=== PATIENT | male | born 1970 | race African-American/Black ===

== ENCOUNTER 2017-07-16 02:32 | Emergency (ER) | payer MEDICAID, OTHER ==
[~2017-07-16] VITALS: Ht 175.3 cm; Wt 79.5 kg
[2017-07-16 02:38] VITALS: BP 143/86
== END 2017-07-16 04:02 | disposition home or self-care (01) ==
LOC: ED 03:30
DX: L03.011 Cellulitis of right finger (principal); M79.641 Pain in right hand
CPT/HCPCS: 10060

== ENCOUNTER 2017-08-30 22:37 | Emergency (ER) | payer SELFPAY ==
[~2017-08-30] VITALS: Ht 172.7 cm; Wt 78.7 kg
[2017-08-30] MEDS ORDERED: SODIUM CHLORIDE FLUSH 10ML SYR IVF ONE (23:00)
[2017-08-30] MEDS ORDERED: ONDANSETRON 2MG/ML, 2ML IVPush ONE (23:00)
[2017-08-30] MEDS ORDERED: SODIUM CHLORIDE 0.9% 1,000ML IVBOLUS ONE (23:00)
[2017-08-30] MEDS ORDERED: MORPHINE SULFATE 4 MG/ML, 1ML ONE (23:18)
[2017-08-30] MEDS ORDERED: ONDANSETRON 2MG/ML, 2ML ONE (23:18)
[2017-08-30] MEDS: MORPHINE SULFATE 4 MG/ML, 1ML IVPush PRN (23:22)
[2017-08-30 23:24] LABS: HEMATOCRIT 46.7 % (39.2-51.8); HEMOGLOBIN 16.2 g/dL (13.7-18.0)
[2017-08-30 23:36] LABS: BLOOD UREA NITROGEN 11 mg/dL (7-18)
[2017-08-31] MEDS ORDERED: MORPHINE SULFATE 4 MG/ML, 1ML ONE (00:35)
[2017-08-31] MEDS: MORPHINE SULFATE 4 MG/ML, 1ML IVPush PRN (00:39)
[2017-08-31 00:57] VITALS: BP 114/81
== END 2017-08-31 01:01 | disposition home or self-care (01) ==
LOC: ED 22:59
DX: R10.32 Left lower quadrant pain (principal); K02.9 Dental caries, unspecified; R11.2 Nausea with vomiting, unspecified
CPT/HCPCS: 36415; 74177; 80048; 81003; 82040; 85025; 96374; 96375; 96376; 99285; J2405; J7030

== ENCOUNTER 2018-07-09 09:15 | Emergency (ER) | payer MEDICAID, OTHER ==
[~2018-07-09] VITALS: Ht 172.7 cm; Wt 78.3 kg
[2018-07-09 09:22] VITALS: BP 127/86
== END 2018-07-09 10:36 | disposition home or self-care (01) ==
LOC: ED 10:15
DX: R60.0 Localized edema (principal); M79.605 Pain in left leg
CPT/HCPCS: 99284

== ENCOUNTER 2019-02-02 16:02 | Emergency (ER) | payer SELFPAY ==
[~2019-02-02] VITALS: Ht 170.2 cm; Wt 74.8 kg
[2019-02-02 16:06] VITALS: BP 158/97
[2019-02-02] MEDS ORDERED: ASPIRIN 81 MG TABLET CHEW PO ONE (16:30)
[2019-02-02 17:07] LABS: BASOPHILS # (AUTO) 0.01 x10^3/uL (0-0.1); BASOPHILS % (AUTO) 0 % (0-1); EOSINOPHILS % (AUTO) 0 % (1-7); LYMPHOCYTES # (AUTO) 0.61 x10^3/uL (1-3.4); LYMPHOCYTES % (AUTO) 13 % (22-44); MD NO; MEAN CORPUSCULAR HEMOGLOBIN 33.1 pg (27.5-34.5); MEAN CORPUSCULAR HGB CONC 34.5 g/dL (33.2-36.2); MEAN CORPUSCULAR VOLUME 96.1 fL (81-97); MEAN PLATELET VOLUME 7.6 fL (7.4-10.4); MONOCYTES # (AUTO) 0.45 x10^3/uL (0.2-0.8); MONOCYTES % (AUTO) 10 % (2-9); NEUTROPHILS # (AUTO) 3.54 x10^3/uL (1.8-6.8); NEUTROPHILS % (AUTO) 77 % (42-75); PLATELET COUNT 222 x10^3/uL (130-400); RED BLOOD COUNT 4.94 x10^6/uL (4.38-5.82); RED CELL DISTRIBUTION WIDTH 13.9 % (9.4-14.8)
[2019-02-02 17:18] LABS: ALANINE AMINOTRANSFERASE 62 U/L (12-78); ALBUMIN 4.5 g/dL (3.4-5.0); ANION GAP 8 mmol/L (5-15); CALCIUM 9.7 mg/dL (8.5-10.1); CHLORIDE 99 mmol/L (98-107); CREATININE 1.02 mg/dL (0.7-1.3)
[2019-02-02 17:23] LABS: ALKALINE PHOSPHATASE 86 U/L (45-117); BILIRUBIN,TOTAL 0.7 mg/dL (0.2-1.0); TOTAL PROTEIN 9.3 g/dL (6.4-8.2); TROPONIN I < 0.015 ng/mL (0.000-0.045)
[2019-02-02] MEDS ORDERED: ASPIRIN 81 MG TABLET CHEW ONE (18:24)
[2019-02-02] MEDS ORDERED: MAALOX/HYOSCYAMINE/LIDOCAINE 45 ML BTL PO ONE (18:30)
[2019-02-02] MEDS ORDERED: MAALOX/HYOSCYAMINE/LIDOCAINE 45 ML BTL ONE (18:35)
--- NOTE | 2019-02-02 19:12 | NUR ---
REPORT OF PT FROM JASON MUNOZ AND ASSUMING CARE OF PT AT THIS TIME.
--- NOTE | 2019-02-02 19:13 | NUR ---
REPORT OF PT FROM JASON MUNOZ AND ASSUMING CARE OF PT AT THIS TIME.
--- NOTE | 2019-02-02 20:02 | NUR ---
CARE ASSUMED FOR DC. PT DC'D HOME WITH RX X 1 AND UNDERSTANDING OF INSTRUCTIONS. PT ESCORTED TO DC DESK, GAIT STEADY.
== END 2019-02-02 20:05 | disposition home or self-care (01) ==
LOC: ED 18:06
DX: K21.9 Gastro-esophageal reflux disease without esophagitis (principal); K29.00 Acute gastritis without bleeding; R07.9 Chest pain, unspecified
CPT/HCPCS: 36415; 71046; 80053; 80307; 84484; 85025; 93005; 99284